=== PATIENT | male | born 1980 | race Two or more races ===

== ENCOUNTER → 2019-03-26 | Outpatient (CLI) | payer BC ==
[~2019-03-26] MED LIST: OXYMETAZOLINE 0.05% NASAL SPRAY 30ML BOTTLE. NS ONE
--- NOTE | 2019-03-27 09:10 | SLEEP ---
DATE OF STUDY: 03/26/2019 ATTENDING PHYSICIAN: Dr. Harshil Benitez. The patient is 38 years old who weighs 270 pounds with a BMI of 39. The patient's [place] score was 17 suggesting severe subjective hypersomnia. The patient underwent split night study performed at [facility]. During the night study, the patient spent 405 minutes in bed and slept for 339 minutes with a sleep efficiency of 84%. Sleep latency was short at 1 minute with a REM latency of 168 minutes. Overall, sleep architecture showed normal stage 1 and stage 2 sleep, increased N3 sleep and normal REM sleep. During the initial diagnostic portion of the study, the patient slept for 72 minutes. During that time, the patient had 5 obstructive apneas, no mixed or central apneas and 87 hypopneas. The patient's apnea hypopnea index was 77 per hour with a supine index of 78 per hour. REM sleep was not seen during the diagnostic portion of the study. EKG monitoring revealed normal sinus rhythm. No sustained arrhythmias observed. No clinically significant PLMS observed. Nocturnal oximetry study during the diagnostic portion revealed a mean oxygen saturation 91% with the lowest of 63%. 37% of time oxygen saturation remained between 80% and 89% and 5% of the time between 70% and 79%. The patient met the criteria for CPAP initiation. It was started at 5 cm water and titrated up to 20 cm of water. At the final pressure, the patient slept for 93 minutes. The patient had supine as well as REM sleep. The patient's AHI was reduced to 1 per hour and oxygen saturation remained above 90%. The patient used a small size full face mask. IMPRESSION: 1. Severe sleep apnea-hypopnea syndrome at an AHI of 77 per hour. 2. Nocturnal hypoxia secondary to obstructive sleep apnea, but resolved with CPAP. 3. No clinically significant PLMS. RECOMMENDATIONS: 1. CPAP at 20 cm water completely eliminated the patient's sleep apnea and should be used on a nightly basis. 2. Follow up in 4-6 weeks to assess compliance with CPAP and to document clinical improvement. 3. Weight loss is strongly advised. 4. Avoid [employer] depressants. 5. Caution regarding driving or operating heavy machinery until symptoms of sleep apnea resolve with the use of CPAP. VAISHALI RICHARDSON MD DR: ASHISH/fang JOB#: [id number] / [id number] HARSHIL Yarbrough MD
== END | disposition home or self-care (01) ==
LOC: SLPLAB 19:00
PROVIDERS: ATTEND Family Medicine
DX: G47.33 Obstructive sleep apnea (adult) (pediatric) (principal); G47.34 Idiopathic sleep related nonobstructive alveolar hypoventilation
CPT/HCPCS: 95810